=== PATIENT | male | born 2000 | race Caucasian/White ===

== ENCOUNTER 2019-03-21 09:36 | Emergency (ER) | payer SELFPAY ==
[2019-03-21] MEDS ORDERED: Sodium Chloride 0.9% 10 ML Syringe FLUSH PRN (09:45)
[2019-03-21 10:21] LABS: CHLORIDE,CL 103 mmol/L (98-107); SODIUM,NA 141 mmol/L (136-145)
[2019-03-21] MEDS: Iopamidol 612 MG/ML 100 ML Bottle IVPUSH ONE (10:30)
[2019-03-21 10:33] LABS: ANION GAP 12.9 mmol/L (10-20)
--- NOTE | 2019-03-21 10:41 | EDM.PDOC ---
ED HPI GENERAL MEDICAL PROBLEM - General Chief Complaint: Abdominal Pain Stated Complaint: ABDOMINAL PAIN Time Seen by Provider: 03/21/19 09:43 Source of Information: Reports: Patient, Old Records, RN, RN Notes Reviewed History Limitations: Reports: No Limitations - History of Present Illness INITIAL COMMENTS - FREE TEXT/NARRATIVE: Patient presents to the ED at [facility] for the evaluation of lower abdominal pain that started last Tuesday morning after he drank milk. He states he did have one episode of vomiting and still feels nauseated. He has not really had much of an appetite. He states the pain is sharp and stabbing. The pain waxes and wains but is always present to some degree. Has a previous history of a right inguinal hernia repair February 2018. No other medical history. Overall, the patient has been in good health. He states the pain does not radiate. He is trying to stay well hydrated. He denies any UTI symptoms. 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: Other (see below) (None) Lower Abdomen Pain Score (Numeric/FACES): 5 - Related Data Allergies Allergy/AdvReac Type Severity Reaction Status Date / Time No Known Allergies Allergy Verified 03/21/19 09:46 Home Meds: Home Meds Nitrofurantoin Monohyd/M-Cryst [Macrobid 100 mg Capsule] 100 mg PO BID 7 Days # 14 capsule 03/21/19 [Rx] predniSONE 20 mg PO BID 5 Days #10 tab 03/21/19 [Rx] Past Medical History Other Gastrointestinal History: hernia repair 02/24 Social & Family History - Tobacco Use Smoking Status *Q: Never Smoker ED ROS GENERAL - Review of Systems Review Of Systems: See Below Constitutional: Denies: Fever, Chills Respiratory: Denies: Shortness of Breath, Cough Cardiovascular: Denies: Chest Pain, Palpitations GI/Abdominal: Reports: Abdominal Pain, Nausea, Vomiting Skin: Reports: No Symptoms Neurological: Reports: No Symptoms ED EXAM, GI/ABD - Physical Exam Exam: See Below Exam Limited By: No Limitations General Appearance: Alert, No Apparent Distress Respiratory/Chest: No Respiratory Distress, Lungs Clear, Normal Breath Sounds Cardiovascular: Normal Peripheral Pulses, Regular Rate, Rhythm GI/Abdominal Exam: Normal Bowel Sounds, Soft, Rigid, Tender (bilateral lower abdomen). No: Rebound Neurological: Alert, Oriented Skin Exam: Warm, Dry, Intact, Normal Color Course - Vital Signs Last Recorded V/S: Last Vital Signs Temp 36.8 C 03/21/19 09:36 Pulse 68 03/21/19 09:36 Resp 16 03/21/19 09:36 BP 140/82 03/21/19 09:36 Pulse Ox 100 03/21/19 09:36 - Orders/Labs/Meds Orders: Active Orders 24 hr Category Date Time Status CHLAMYDIA/GC NUCLEIC ACID AMP [MREF] Stat Lab 03/21/19 09:55 Received CULTURE URINE [RM] Stat Lab 03/21/19 10:23 Received Sodium Chloride 0.9% [Saline Flush] Med 03/21/19 09:45 Active 10 ml FLUSH ASDIRECTED PRN Peripheral IV Insertion Adult [OM.PC] Routine Oth 03/21/19 09:45 Ordered Medication Orders Sodium Chloride (Saline Flush) 10 ml FLUSH ASDIRECTED PRN PRN Reason: Keep Vein Open Labs: Laboratory Tests 03/21/19 03/21/19 03/21/19 Range/Units 09:50 09:50 09:50 WBC 5.2 (4.0-10.0) x10^3/uL RBC 4.66 (4.5-6.0) x10^6/uL Hgb 14.8 (14.0-18.0) g/dL Hct 41.9 (40.0-52.0) % MCV 89.9 (78.0-93.0) fL MCH 31.8 (26.0-32.0) pg MCHC 35.3 (32.0-36.0) g/dL RDW Coeff of Kev 13.3 (10.0-15.0) % Plt Count 289 (130-400) x10^3/uL Neut % (Auto) 51.4 (50.0-80.0) % Lymph % (Auto) 35.7 (25.0-50.0) % [place] % (Auto) 9.8 (2.0-11.0) % Eos % (Auto) 2.7 (0.0-4.0) % Baso % (Auto) 0.4 (0.2-1.2) % Sodium 141 (136-145) mmol/L Potassium 4.9 (3.5-5.1) mmol/L Chloride 103 (98-107) mmol/L Carbon Dioxide 30 (21-32) mmol/L Anion Gap 12.9 (10-20) mmol/L BUN 19 H (7-18) mg/dL Creatinine 0.9 (0.70-1.30) mg/dL Est Cr Clr Drug Dosing TNP Estimated GFR (MDRD) > 60 Glucose 99 (74-106) mg/dL Lactic Acid 1.3 (0.4-2.0) mmol/L Calcium 9.4 (8.5-10.1) mg/dL Corrected Calcium 9.24 (8.5-10.1) mg/dL Total Bilirubin 0.6 (0.2-1.0) mg/dL AST 12 L (15-37) U/L ALT 27 (16-63) U/L Alkaline Phosphatase 93 (46-116) U/L C-Reactive Protein 0.4 (<=0.9) mg/dL Total Protein 7.7 (6.4-8.2) g/dL Albumin 4.2 (3.4-5.0) g/dL Globulin 3.5 Albumin/Globulin Ratio 1.20 Amylase 51 (25-115) U/L Lipase 181 (73-393) U/L Urine Color (YELLOW) Urine Appearance (CLEAR) Urine pH (5.0-8.0) Ur Specific [place] Urine Protein (NEGATIVE) mg/dL Urine Glucose (UA) (NEGATIVE) mg/dL Urine Ketones (NEGATIVE) mg/dL Urine Occult Blood (NEGATIVE) Urine Nitrite (NEGATIVE) Urine Bilirubin (NEGATIVE) Urine Urobilinogen (0.2) EU/dL Ur Leukocyte Esterase (NEGATIVE) Urine RBC (NOT SEEN) /HPF Urine WBC (NOT SEEN) /HPF Urine Mucus (NEGATIVE) /LPF 03/21/19 Range/Units 10:23 WBC (4.0-10.0) x10^3/uL RBC (4.5-6.0) x10^6/uL Hgb (14.0-18.0) g/dL Hct (40.0-52.0) % MCV (78.0-93.0) fL MCH (26.0-32.0) pg MCHC (32.0-36.0) g/dL RDW Coeff of Kev (10.0-15.0) % Plt Count (130-400) x10^3/uL Neut % (Auto) (50.0-80.0) % Lymph % (Auto) (25.0-50.0) % [place] % (Auto) (2.0-11.0) % Eos % (Auto) (0.0-4.0) % Baso % (Auto) (0.2-1.2) % Sodium (136-145) mmol/L Potassium (3.5-5.1) mmol/L Chloride (98-107) mmol/L Carbon Dioxide (21-32) mmol/L Anion Gap (10-20) mmol/L BUN (7-18) mg/dL Creatinine (0.70-1.30) mg/dL Est Cr Clr Drug Dosing Estimated GFR (MDRD) Glucose (74-106) mg/dL Lactic Acid (0.4-2.0) mmol/L Calcium (8.5-10.1) mg/dL Corrected Calcium (8.5-10.1) mg/dL Total Bilirubin (0.2-1.0) mg/dL AST (15-37) U/L ALT (16-63) U/L Alkaline Phosphatase (46-116) U/L C-Reactive Protein (<=0.9) mg/dL Total Protein (6.4-8.2) g/dL Albumin (3.4-5.0) g/dL Globulin Albumin/Globulin Ratio Amylase (25-115) U/L Lipase (73-393) U/L Urine Color Yellow (YELLOW) Urine Appearance Slightly cloudy H (CLEAR) Urine pH 7.0 (5.0-8.0) Ur Specific [place] 1.020 Urine Protein Negative (NEGATIVE) mg/dL Urine Glucose (UA) Negative (NEGATIVE) mg/dL Urine Ketones Negative (NEGATIVE) mg/dL Urine Occult Blood Negative (NEGATIVE) Urine Nitrite Negative (NEGATIVE) Urine Bilirubin Negative (NEGATIVE) Urine Urobilinogen 0.2 (0.2) EU/dL Ur Leukocyte Esterase Trace H (NEGATIVE) Urine RBC 0-5 (NOT SEEN) /HPF Urine WBC 5-10 H (NOT SEEN) /HPF Urine Mucus Few H (NEGATIVE) /LPF Meds: Medications Generic Name Dose Route Start Last Admin Trade Name Frekristopher PRN Reason Stop Dose Admin Sodium Chloride 10 ml 03/21/19 09:45 Saline Flush FLUSH ASDIRECTED PRN Keep Vein Open Discontinued Medications Generic Name Dose Route Start Last Admin Trade Name Freq PRN Reason Stop Dose Admin Sodium Chloride 1,000 mls @ 999 mls/hr 03/21/19 09:45 03/21/19 10:45 Normal Saline IV 03/21/19 10:45 999 mls/hr ONETIME ONE Administration Iopamidol 100 ml 03/21/19 10:29 03/21/19 10:30 Isovue-300 (61%) IVPUSH 03/21/19 10:30 100 ml ONETIME ONE Administration - Radiology Interpretation Free Text/Narrative:: CT Abd/Pelvis: Possible mild/early changes of terminal ileitis, which is nonspecific but can be seen with inflammatory bowel disease. Additional evaluation recommended. See scanned report in EMR for further details CT Results Date: 03/21/19 CT Results Time: 10:58 Departure - Departure Time of Disposition: 11:10 Disposition: Home, Self-Care 01 Condition: Good Clinical Impression: Ileitis, terminal Qualifiers: Digestive disease complication type: without complication Qualified Code(s): K50.00 - Crohn's disease of small intestine without complications UTI (urinary tract infection) Qualifiers: Urinary tract infection type: acute cystitis Hematuria presence: without hematuria Qualified Code(s): N30.00 - Acute cystitis without hematuria - Discharge Information *PRESCRIPTION DRUG MONITORING PROGRAM REVIEWED*: Not Applicable *COPY OF PRESCRIPTION DRUG MONITORING REPORT IN PATIENT AMY: Not Applicable Prescriptions: Nitrofurantoin Monohyd/M-Cryst [Macrobid 100 mg Capsule] 100 mg PO BID 7 Days # 14 capsule predniSONE 20 mg PO BID 5 Days #10 tab Instructions: Urinary Tract Infection, Adult, Colitis Referrals: Reginald Henriquez NP [Primary Care Provider] - Forms: ED Department Discharge Additional Instructions: 1. Stay well hydrated and rest 2. Eat a bland diet, avoid fatty, greasy foods 3. Take medications for the full coarse, even if you are feeling better 4. See me in the clinic next week, you will need a referral to GI for further workup - Problem List Review Problem List Initiated/Reviewed/Updated: Yes - My Orders Last 24 Hours: My Active Orders 03/21/19 09:45 Sodium Chloride 0.9% [Saline Flush] 10 ml FLUSH ASDIRECTED PRN Peripheral IV Insertion Adult [OM.PC] Routine 03/21/19 09:55 CHLAMYDIA/GC NUCLEIC ACID AMP [MREF] Stat 03/21/19 10:23 CULTURE URINE [RM] Stat - Assessment/Plan Last 24 Hours: My Active Orders 03/21/19 09:45 Sodium Chloride 0.9% [Saline Flush] 10 ml FLUSH ASDIRECTED PRN Peripheral IV Insertion Adult [OM.PC] Routine 03/21/19 09:55 CHLAMYDIA/GC NUCLEIC ACID AMP [MREF] Stat 03/21/19 10:23 CULTURE URINE [RM] Stat Assessment:: Ileitis UTI Plan: Labs and xray discussed with patient. Will empirically start on Macrobid for small UTI. [place] diet. Will also do a short coarse of steroids to help with bowel inflammation. Will have patient see me in clinic for follow up.
[2019-03-21] MEDS: Sodium Chloride 0.9% 1,000 ML IV ONE (10:45)
--- NOTE | 2019-03-21 11:02 | CT ---
[id number] CT/CT Abdomen Pelvis W IV EXAM: CT Abdomen Pelvis W IV CLINICAL DATA: ABDOMINAL PAIN,NAUSEA. COMPARISON STUDY: February 2018. FINDINGS: Lung bases are clear. Liver, spleen, gallbladder, pancreas, adrenal glands, and kidneys are unremarkable. Multiple reactive right lower quadrant lymph nodes adjacent terminal ileum, which demonstrates mild wall thickening and enhancement greater than that of the adjacent small bowel. Findings are nonspecific but can be seen in early changes of terminal ileitis. No bowel obstruction. Colon is unremarkable. Appendix is normal. Urinary bladder is unremarkable. IMPRESSION: Possible mild/early changes of terminal ileitis, which is nonspecific but can be seen with inflammatory bowel disease. Additional evaluation recommended. Mike Marion MD 03/21/19 1101 Thank you for allowing us to participate in the care of your patient.
== END 2019-03-21 11:33 | disposition home or self-care (01) ==
LOC: VM.ED 09:36
DX: K50.00 Crohn's disease of small intestine without complications (principal); N30.00 Acute cystitis without hematuria
CPT/HCPCS: 36415; 74177; 80053; 81001; 82150; 83605; 83690; 85025; 86140; 87086; 96360; 99284-25; 99284-GF; J7030; Q9967